=== PATIENT | male | born 1990 | race Caucasian/White ===

== ENCOUNTER 2017-11-01 19:08 | Emergency (ER) | payer OTHER ==
[~2017-11-01] VITALS: Ht 172.7 cm; Wt 101.2 kg
[2017-11-01 19:47] VITALS: Ht 172.7 cm; Wt 101.2 kg
[2017-11-01 22:36] VITALS: BP 128/74
== END 2017-11-01 22:36 | disposition home or self-care (01) ==
LOC: ED 19:08
DX: H66.91 Otitis media, unspecified, right ear (principal); J06.9 Acute upper respiratory infection, unspecified

== ENCOUNTER 2018-02-13 13:08 | Emergency (ER) | payer SELFPAY ==
[~2018-02-13] VITALS: Ht 172.7 cm; Wt 96.6 kg
[2018-02-13 13:26] VITALS: Ht 172.7 cm; Wt 96.6 kg
[2018-02-13 15:55] VITALS: BP 127/81
== END 2018-02-13 15:55 | disposition home or self-care (01) ==
LOC: ED 13:08
DX: B34.9 Viral infection, unspecified (principal)
CPT/HCPCS: Q0092; Q0162